=== PATIENT | male | born 1995 | race African-American/Black ===

== ENCOUNTER 2020-12-06 10:00 | Emergency (ER) | payer OTHER ==
[2020-12-06 10:06] VITALS: BP 132/89
[2020-12-06] MEDS ORDERED: TETANUS/DIPHTHERIA/PERTUSSIS 0.5 ML SYRINGE IM ONE (10:18)
[2020-12-06] MEDS ORDERED: LIDOCAINE-MPF 2% 5 ML VIAL IM ONE (10:19)
--- NOTE | 2020-12-06 13:40 | ED Physician Documentation ---
History of Present Illness - Stated complaint Stated Complaint: LT PINKY LAC - Chief complaint Chief Complaint: Laceration - History obtained from History obtained from: Patient - Additonal information Additional information: 25yM p/w L fifth finger laceration at work. unsure of what he cut it on. unsure of vaccine status/last tdap. denies other injury Review of Systems Skin: reports: Laceration (s) PD PAST MEDICAL HISTORY - Past Medical History Past Medical History: No - Past Surgical History Past Surgical History: No - Present Medications Home Medications: Ambulatory Orders Medication Instructions Recorded Confirmed No Known Home Medications 12/06/20 12/06/20 - Allergies Allergies/Adverse Reactions: Allergies Allergy/AdvReac Type Severity Reaction Status Date / Time No Known Drug Allergies Allergy Verified 12/06/20 10:03 - Social History Does the pt smoke?: No Smoking Status: Never smoker PD ED PE NORMAL - Vitals Vital signs reviewed: Yes - General General: Alert and oriented X 3, No acute distress - Derm Derm: Normal color, Warm and dry, Other (2cm lac to volar aspect of L fifth digit at dip joint. superficial) - Extremities Extremities: No deformity, Normal ROM s pain - Neuro Neuro: Alert and oriented X 3 Results - Vitals Vitals: Vital Signs - 24 hr 12/06/20 10:04 Temperature 37.0 C Heart Rate 92 Respiratory 18 Rate Blood Pressure 132/89 H O2 Saturation 100 Oxygen O2 Source Room air Procedures - Laceration (location) Finger left Length in cm: 2 Wound type: Linear Neurovascular status: Sensory intact, Motor intact Tendon involvement: Tendon intact Anesthesia: Lidocaine 2% Wound preparation: Other (irrigated copiously with water) Skin layer closure: Nylon, Size #-0 - enter number (4), Sutures - enter # (3) Other: Patient tolerated well, No complications, Neurovascular intact, Dressing applied, Tetanus booster given PD MEDICAL DECISION MAKING - ED course ED course: 25yM p/w uncomplicated laceration, repaired without incident. return precautions given. he will return for suture removal in 14 d. Departure - Departure Disposition: 01 Home, Self Care Clinical Impression: Laceration of finger Condition: Good Instructions: ED Laceration All Comments: You are seen in the emergency department for laceration of your finger or a cut on your finger. Monitor for any signs of infection. Please return to the emergency department in 14 days for suture removal or go to urgent care. Please return to the emergency department if you see anything concerning. We are available 24 hours. Discharge Date/Time: 12/06/20 13:50
[2020-12-06] MEDS ORDERED: BACITRACIN ZINC OINT 1 PACKET TOP STA (13:41)
== END 2020-12-06 13:50 | disposition home or self-care (01) ==
LOC: ED 10:00
DX: S61.217A Laceration without foreign body of left little finger without damage to nail, initial encounter (principal); W26.9XXA Contact with unspecified sharp object(s), initial encounter; Y92.512 Supermarket, store or market as the place of occurrence of the external cause; Y99.0 Civilian activity done for income or pay; Z23 Encounter for immunization
CPT/HCPCS: 12001; 90471; 99282; 99283